=== PATIENT | male | born 1970 | race Hispanic/Latino ===

== ENCOUNTER 2016-10-02 12:33 | Emergency (ER) | payer MEDICAID, OTHER ==
[~2016-10-02] VITALS: Ht 172.7 cm; Wt 77.3 kg
[2016-10-02 12:33] VITALS: BP 136/75; PULSE 89; RESP 20; O2SAT 98
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
[2016-10-02] MEDS ORDERED: IBUP-1827 PO (14:38)
[2016-10-02] MEDS ORDERED: OXYC1TAB24 PO (14:38)
--- NOTE | 2016-10-02 14:41 | DRSVH ---
PROCEDURE: X-RAY CHEST, TWO VIEWS ([id number]) INDICATIONS: CHEST PAIN TECHNIQUE: 2 views of the chest were acquired. COMPARISON: None. FINDINGS: Surgical changes and devices: None. Lungs and pleura: No pleural effusions or pneumothorax. Lungs are clear. Mediastinum: Mediastinal contours are normal. Heart size is normal. Bones and chest wall: Segmental left third rib fracture. IMPRESSION: Segmental left third rib fracture. No acute cardiopulmonary disease. Dictated by: Leonides Blum M.D. on 10/02/2016 at 14:38 Approved by: Leonides Blum M.D. on 10/02/2016 at 14:39
[2016-10-02 15:07] VITALS: BP 126/59; PULSE 89; RESP 15; O2SAT 99
[2016-10-02 15:08] VITALS: BP 126/59; PULSE 89; RESP 15; O2SAT 99
== END 2016-10-02 15:08 | disposition home or self-care (01) ==
LOC: SED 12:33
DX: S22.32XA Fracture of one rib, left side, initial encounter for closed fracture (principal); Y04.8XXA Assault by other bodily force, initial encounter; Y93.89 Activity, other specified; Y92.89 Other specified places as the place of occurrence of the external cause; Y99.8 Other external cause status; F17.200 Nicotine dependence, unspecified, uncomplicated; Z98.890 Other specified postprocedural states; Z88.0 Allergy status to penicillin; Z88.5 Allergy status to narcotic agent